=== PATIENT | female | born 1965 | race Caucasian/White ===

== ENCOUNTER → 2017-03-20 08:37 | Outpatient (CLI) | payer BC, SELFPAY ==
[2017-03-20 12:12] LABS: Absolute Lymphocyte Count 1.56 X10^3/ul (0.83-4.51); Absolute Neutrophil Count 4.1 X10^3/uL (2.0-7.7); Basophil# 0.09 X10^3/uL; Basophil% 1.4 % (0-1); Eosinophil# 0.12 X10^3/uL; Eosinophils% 1.9 % (0-5); Hematocrit 38.8 % (37-47); Hemoglobin 12.5 g/dl (12.0-15.0); Lymphocyte # 1.56 X10^3/ul (4.0); Lymphocyte % 24.4 % (19-41); Mean Corp Hgb Conc 32.2 g/gl (32-36); Mean Corpuscular Hgb 26.9 pg (27.0-32.0); Mean Corpuscular Volume 83.6 fL (81-99); Mean Platelet Vol. 9.5 fl (6.2-12.0); Monocyte% 7.8 % (0-10); Neutrophil # 4.12 X10^3/uL (2.7-7.7); Neutrophil % 64.5 % (47-70); Platelet Count 476 K/mm3 (150-450); RBC Distribution Width CV 13.9 % (11.6-14.6); RBC Distribution Width SD 40.8 fl (35.1-43.9); Red Blood Count 4.64 M/mm3 (4.2-5.4); White Blood Count 6.4 K/mm3 (4.4-11.0)
[2017-03-20 12:13] LABS: POSITIVE COUNT NO; POSITIVE DIFFERENTIAL NO; POSITIVE MORPHOLOGY NO
[2017-03-20 12:15] LABS: Erythrocyte Sedimentation Rate 30 mm/hr (0-30)
[2017-03-20 12:19] LABS: ALB/GLOB Ratio 0.9 RATIO (0.9-2.4); AST(SGOT) 16 U/L (15-37); Alanine Aminotransfer ALT/SGPT 29 U/L (13-56); Albumin, Serum 3.8 g/dL (3.2-5.0); Alkaline Phosphatase 79 U/L (45-117); Anion Gap 9 (5-15); BUN 12 mg/dL (7-18); BUN/Creat Ratio 16.2 RATIO (10-20); CRP < 2.90 mg/L (0.0-3.0); Calcium,Total 8.9 mg/dL (8.5-10.1); Chloride 105 mmol/L (98-107); Creatinine, Serum 0.74 mg/dL (0.55-1.02); EST Glomerular Filtration Rate 87 mL/min (>60); Est Glom Filt Rate - Afr Amer 105 mL/min (>60); Globulin 4.1 g/dL (2.2-4.2); Glucose 88 mg/dL (70-110); Magnesium 2.2 mg/dL (1.6-2.6); Protein, Total 7.9 g/dL (6.4-8.2); Sodium Level 138 mmol/L (136-145)
--- NOTE | 2017-03-20 17:24 | RAD_ITS ---
STUDY: X-RAY - CERVICAL SPINE REASON FOR EXAM: Female, 51 years old. Increased weakness in the upper extremities. TECHNIQUE: 5 view(s) of the cervical spine were obtained. COMPARISON: None FINDINGS: Normal anterior atlantoaxial articulation. Normal odontoid process. Normal cervical lordosis. Normal vertebral bodies and endplates. Normal disc space heights. Is minimal anterolisthesis of C4 on C5 of 2 mm. The alignment is otherwise preserved. Normal visualized intervertebral neuroforamina. There is no evidence of acute fracture or loss of vertebral axial height. The soft tissue structures are unremarkable. RAD/Cerv Spine 4 or 5 Views IMPRESSION: Minimal degenerative changes of the cervical spine Electronically Signed: José Miguel Bhatti DO at 18:39 EST Tel [phone], Service support ,
[2017-03-21 14:13] LABS: ANTINUCLEAR ANTIBODIES DIRECT Negative (Negative)
== END ==
PROVIDERS: Family Provider Family Medicine; PCP Family Medicine; Visit Provider Family Medicine
DX: M79.1 Myalgia (principal); R53.83 Other fatigue; M54.2 Cervicalgia; R29.898 Other symptoms and signs involving the musculoskeletal system; Z87.898 Personal history of other specified conditions
CPT/HCPCS: 36415; 72050; 80053; 83735; 85025; 85652; 86038; 86140

== ENCOUNTER → 2018-08-16 07:41 | Outpatient (CLI) | payer BC, SELFPAY ==
[2018-08-16 08:54] LABS: Cholesterol 287 mg/dL (200); High Density Lipoprotein 75 mg/dL; Triglycerides 90 mg/dL; Very Low Density Lipoprotein 18 mg/dL (5-40)
== END ==
PROVIDERS: Family Provider Family Medicine; PCP Family Medicine; Referring Provider Family Medicine; Visit Provider Family Medicine
DX: E78.5 Hyperlipidemia, unspecified (principal)
CPT/HCPCS: 36415; 80061

== ENCOUNTER → 2018-09-26 08:22 | Outpatient (CLI) | payer BC, SELFPAY ==
--- NOTE | 2018-09-25 17:02 | BI_ITS ---
MAMMOGRAPHY - BILATERAL SCREENING REASON FOR EXAM: Female, 53 years old. Routine annual screening examination. PERTINENT HISTORY: Mother with breast cancer. TECHNIQUE: Digital bilateral breast ledy (3D mammographic acquisition) in the CC and MLO projections. 2-D mediolateral oblique (MLO) and craniocaudad (CC) views of both breasts were obtained. CAD: Full Field Digital Mammography with Computer Added Detection was performed. COMPARISON: Comparison is made with prior study dated November 13, 2016 and November 17, 2015. FINDINGS: Breast Composition: There are scattered areas of fibroglandular density. There are no dominant masses or suspicious calcifications. No other significant abnormalities are identified. There has been no significant change since the prior study. BI/SCREEN MAMM (CAD) W/LEDY BILAT IMPRESSION: Stable bilateral screening mammogram. Yearly follow-up mammogram recommended. (A) ASSESSMENT CATEGORY: BIRADS Category 1: Negative. A letter regarding these results will be sent to the patient by the facility within 30 days. Approximately 10% of breast cancers are not detected by mammography. A normal mammogram should not delay biopsy of a clinically suspicious abnormality. [id number] Electronically Signed: Joseluis Chandler, at 9:23 EDT , Service support ,
== END ==
PROVIDERS: Family Provider Family Medicine; PCP Family Medicine; Referring Provider Family Medicine; Visit Provider Family Medicine
DX: Z12.31 Encounter for screening mammogram for malignant neoplasm of breast (principal); Z80.3 Family history of malignant neoplasm of breast
CPT/HCPCS: 77063; 77067

== ENCOUNTER → 2019-04-14 15:42 | Outpatient (CLI) | payer BC, SELFPAY ==
[2019-04-14 14:57] VITALS: BMI 28.3
[2019-04-14 16:04] LABS: Hematocrit 44.1 % (37-47); Hemoglobin 14.6 g/dL (12.0-15.0); Mean Corp Hgb Conc 33.1 g/dL (32-36); Mean Corpuscular Hgb 29.3 pg (27.0-32.0); Mean Corpuscular Volume 88.6 fL (81-99); Mean Platelet Vol. 9.2 fl (6.2-12.0); Platelet Count 472 K/mm3 (150-450); RBC Distribution Width CV 13.3 % (11.6-14.6); RBC Distribution Width SD 43.3 fl (35.1-43.9); Red Blood Count 4.98 M/mm3 (4.2-5.4); White Blood Count 7.4 K/mm3 (4.4-11.0)
== END ==
PROVIDERS: PCP Family Medicine; Referring Provider Surgery; Visit Provider Surgery
DX: R19.5 Other fecal abnormalities (principal)
CPT/HCPCS: 36415; 85027

== ENCOUNTER 2019-04-20 06:13 | Day surgery (SDC) | payer BC, SELFPAY ==
--- NOTE | 2019-04-14 04:12 | HP_ITS ---
Intake Vital Signs 04/14/19 BP 135/89 H 04/14/19 Height 5 ft 5 in 04/14/19 Weight: 170 lb 4 oz 04/14/19 BMI 28.3 04/14/19 BP 153/96 H 04/14/19 Blood Pressure Location Rt brachial 04/14/19 Position Sitting 04/14/19 Respiration 18 04/14/19 Pulse 86 04/14/19 Pulse Oximetry (%) 97 Intake Visit Reasons: + cologuard Chief Complaint: + cologuard [employer] Required: No Is patient in pain?: No Allergies No Known Allergies Allergy (Verified 04/14/19 14:57) Medications NK 04/14/19 [History Confirmed 04/14/19] Is last menstrual period known: No Post menopausal: Yes Patient : No PFSH Medical History (Updated 04/14/19 @ 16:[address] Gavin Mendez MD) Positive colorectal cancer screening using Cologuard test (Acute) Hyperlipidemia (Acute) Positive colorectal cancer screening using Cologuard test (Acute) Surgical History (Updated 04/14/19 @ 14:55 by Trista Marley) History of colonoscopy (Acute ~2006) History of partial hysterectomy (Acute ~2007) Family History (Updated 04/14/19 @ 14:56 by Trista Marley) Father Cancer thyroid, lung, brain Grandmother Heart disease Grandfather Heart disease Social History (Updated 04/14/19 @ 16:[address] Gavin Mendez MD) Smoking Status: Never smoker alcohol intake: current HPI HPI HPI: ROSALINE GROSS, is a 53 F who presents to the office today for HPI HPI Surgical H&P: Yes HPI: ROSALINE GROSS, is a 53 F who presents to the office today for surgical consultation regarding a positive Hemoccult exam. The patient's primary care physician is Dr. Briseyda Duval and a copy of my surgical consult and recommendations will return to her. Pleasant 53-year-old female. Previous colonoscopy was in 2006 was unremarkable. No food intolerance. 1 or 2 slight episodes of bright red blood per rectum. No family history of colon cancer. No abdominal pain. No change of bowel habits. No weight loss. She took a Cologuard test and results were positive. Etiology is not determined whether this was DNA or Hemoccult. She otherwise enjoys good health. She does not take any an acid or acid reducing medications. ROS General General: No weight change, appetite, fatigue, colon cancer, breast cancer or weakness HEENT HEENT: No difficulty swallowing, eye injury, eye surgery, swollen glands or hoarseness Endo Endocrine: No thyroid disease, diabetes mellitus, thyroid cancer, Hair loss, heat intolerance or cold intolerance Cardio Cardiovascular: No murmur, pacemaker, heart disease, atrial fibrillation, high blood pressure, heart attack, heart stent, palpitations, shortness of breat with exertion or chest pain Psych Psychiatric: No depression, anxiety or hearing voices Resp Respiratory: No shortness of breath, No sleep apnea, No cough, No COPD, No asthma, No emphysema, No wheezing Gastro Gastrointestinal: No abdominal pain, No nausea or vomiting, No diarrhea, Yes constipation, Yes blood in stool, No acid reflux, No hemorrhoids, No ulcers, No gallbladder problem, Yes black,tarry stools Thomas Hematologic: No blood thinners, No blood disorders, No bleeding, No anemia, No blood clots Neuro Neurologic: No weakness Exam Const General: cooperative, healthy appearing, comfortable, no acute distress Nutritional Appearance: overweight Orientation: alert, awake HENAK Head: normal to inspection Resp Effort & Inspection: normal respiratory effort Auscultation: clear to auscultation bilaterally Cardio Rate: regular rate Rhythm: regular rhythm Heart Sounds: no murmurs GI Palpation: soft, no hepatosplenomegaly Auscultation: normal bowel sounds Neuro General: alert, awake Extrem General: no calf tenderness bilaterally Psych Affect: normal affect Assessment & Plan Problems 1. Positive colorectal cancer screening using Cologuard test R19.5 Plan 53-year-old female. Most recent colonoscopy was 2006. Recent Cologuard was positive. Potential site of positivity not clear. I have recommended the patient a esophagogastroduodenoscopy with possible biopsy and colonoscopy with possible biopsy or polypectomy as indicated. I discussed the technique, benefit, risk, alternatives. Because the Cologuard test is a dual test I cannot exclude potential upper GI as a source of potential blood loss. We will check a CBC as well. She has had an opportunity to ask and have questions answered we will schedule and expedite her care. I anticipate MAC. Griffin assisted with referral CC: Dr. Briseyda Mendez M.D., F.A.C.S. Orders Orders: Colonoscopy Today R19.5 CBC-Complete Blood Cnt No Diff Today R19.5 Coding Level of Care Code Off vis,new,level 3 Diagnoses Positive colorectal cancer screening using Cologuard test R19.5 04/14/19 1612 <Electronically signed by Gavin jerry MD> Date _ Gavin Mendez MD I have re-examined the patient. There are no clinical changes since date of exam.
[2019-04-14 14:57] VITALS: BMI 28.3
[2019-04-20 06:46] VITALS: BP 133/89; PULSE 88; RESP 16; TEMP 36.6; O2SAT 100; BMI 28.1
[2019-04-20] MEDS: Lactated Ringers 1,000 ML 100 ML IV (07:05)
--- NOTE | 2019-04-20 07:15 | EGD_PTH ---
PATIENT: ROSALINE GROSS LOC: EN U#:[id number] AGE/SX: 53/F ROOM: RE04/20/[address]: Dr. Gavin Mendez MD : 1965 BED: DIS: 04/20/2019 SPEC #: [id number] RECD: 04/20/19 08:54 STATUS: WERNER SPEEDY #: [id number] MARIA FERNANDA: 04/20/19 07:[address]: Gavin Mendez DEPT: SURGICAL PATHOLOGY RECD BY: Ramiro Barrow ENTERED: 04/20/19 12:06 SP TYPE: EGD BIOPSY OT DR: Dr. Briseyda Duval, DO Tissues: A - Gastric mucous membrane B - Esophageal mucous membrane Procedures: Surgery Specimen Level IV HEADER OPERATION: [place] [place] DIAGNOSIS: Positive Cologuard TISSUE SUBMITTED: A - Antrum biopsy for H. pylori and path, B - Distal esophagus biopsy MICROSCOPIC DIAGNOSIS A. Antrum, biopsy: Mild to moderate gastritis. A minute lymphoid aggregate, favor benign. See microscopic description and comment. B. Distal esophagus, biopsy: A fragment of squamous epithelium with congestion and changes consistent with gastroesophageal reflux disease. SJ:elvira 04/21/19 COMMENT A. The results of immunohistochemistry for Helicobacter pylori will be reported separately ([id number]). MICROSCOPIC DESCRIPTION Slides are reviewed. A. The specimen shows fragments of gastric mucosa with chronic inflammatory cell infiltrates in the lamina propria consisting of lymphocytes and plasma cells, consistent with mild to moderate chronic gastritis. A minute lymphoid aggregate is also noted, favor benign. GROSS DESCRIPTION A - Received in fixative is one container labeled with the patient's name and designated antrum biopsy. The specimen consists of one irregular fragment of light caballero soft tissue that measures 0.3 x 0.2 x 0.1 cm. The specimen is totally submitted in one cassette. B - Received in fixative is one container labeled with the patient's name and designated distal esophagus biopsy. The specimen consists of one irregular fragment of light caballero soft tissue that measures 0.3 x 0.2 x 0.1 cm. The specimen is totally submitted in one cassette. / MARCI:elvira 04/20/19 TC:3 CPT: 34206 x2
--- NOTE | 2019-04-20 07:15 | IMM_PTH ---
PATIENT: ROSALINE GROSS LOC: EN U#:[id number] AGE/SX: 53/F ROOM: RE04/20/[address]: Dr. Gavin Mendez MD : 1965 BED: DIS: 04/20/2019 SPEC #: [id number] RECD: 04/20/19 14:21 STATUS: WERNER RESonia #: [id number] MARIA FERNANDA: 04/20/19 07:[address]: Gavin Mendez DEPT: IMMUNOHISTOCHEMISTRY RECD BY: Liz Gonzalez ENTERED: 04/20/19 14:22 SP TYPE: IMMUNO OTHR DR: Dr. Briseyda Duval DO Tissues: A - Stomach, NOS Procedures: H Pylori (initial) PHYSICIAN & INSTITUTION [place] [address] SPECIMEN INFORMATION: Tissue Source: A - Antrum biopsy Clinical Info: Positive Cologuard Specimen Number: [id number] CPT code: 73059 METHODOLOGY: Deparaffinized sections of prefer/formalin-fixed tissue or PAP/DQ stained slides are incubated with monoclonal/polyclonal antibodies/oligonucleotide probes. Localization is made via biotin free immunoperoxidase method. Appropriate controls are performed and reacted as expected. Results on target cell population are indicated in the following table: RESULTS: ANTIBODY / CLONE RESULT Block A H Pylori (polyclonal) negative These tests were developed and their performance characteristics determined by [facility]. They may not have been cleared or approved by the U.S. Food and Drug Administration. The FDA has determined that such clearance or approval is not necessary. INTERPRETATION: A. Antrum, biopsy: Negative for Helicobacter pylori organisms. SJ:elvira 04/21/19
[2019-04-20 07:57] VITALS: BP 133/89; BP 84/47; PULSE 60; RESP 16; TEMP 36.4; O2SAT 94
--- NOTE | 2019-04-20 07:59 | OP.EGD_ITS ---
Patient Name: Lori Bazan Procedure Date: 04/20/2019 7:18 AM Date of : 1965 Age: 53 Procedure: Upper GI endoscopy Indications: Cologuard positive Providers: Gavin Mendez MD Referring MD: Briseyda Duval Complications: No immediate complications. Procedure: Pre-Anesthesia Assessment: - Prior to the procedure, a History and Physical was performed, and patient medications and allergies were reviewed. The patient's tolerance of previous anesthesia was also reviewed. The risks and benefits of the procedure and the sedation options and risks were discussed with the patient. All questions were answered, and informed consent was obtained. Prior Anticoagulants: The patient has taken no previous anticoagulant or antiplatelet agents. ASA Grade Assessment: II - A patient with mild systemic disease. After reviewing the risks and benefits, the patient was deemed in satisfactory condition to undergo the procedure. After obtaining informed consent, the endoscope was passed under direct vision. Throughout the procedure, the patient's blood pressure, pulse, and oxygen saturations were monitored continuously. The gastroscope was introduced through the mouth, and advanced to the second part of duodenum. The upper GI endoscopy was accomplished without difficulty. The patient tolerated the procedure well. Scope In: Scope Out: 7:33:49 AM Findings: Esophagitis with no bleeding was found 38 cm from the incisors. Biopsies were taken with a cold forceps for histology. Diffuse mildly erythematous mucosa without bleeding was found in the gastric antrum. Biopsies were taken with a cold forceps for histology. The examined duodenum was normal. Impression: - Reflux esophagitis. Biopsied. - Erythematous mucosa in the antrum. Biopsied. - Normal examined duodenum. Recommendation: - Discharge patient to home. - Resume previous diet. - Continue present medications. - Use Pepcid (famotidine) 20 mg PO daily. - Telephone my office for pathology results in 1 week. Suspect mild gastritis enough to trigger Cologuard test Procedure Code(s): --- Professional --- 75270, Esophagogastroduodenoscopy, flexible, transoral; with biopsy, single or multiple Diagnosis Code(s): --- Professional --- K21.0, Gastro-esophageal reflux disease with esophagitis K31.89, Other diseases of stomach and duodenum CPT copyright 2017 [employer]. All rights reserved. The codes documented in this report are preliminary and upon inspector machine cut glass review may be revised to meet current compliance requirements. Gavin Mendez MD 04/20/2019 7:58:32 AM This report has been signed electronically. Number of Addenda: 0 Note Initiated On: 04/20/2019 7:18 AM
--- NOTE | 2019-04-20 07:59 | OP.CCLET_ITS ---
04/20/2019 Briseyda Duval [address] [place] [address] Re : Upper GI endoscopy procedure for Lori Bazan Dear Dr. Duval This procedure was performed on Saturday, April 20, 2019. My impressions and recommendations are as follows: Impressions : - Reflux esophagitis. Biopsied. - Erythematous mucosa in the antrum. Biopsied. - Normal examined duodenum. Recommendations : - Discharge patient to home. - Resume previous diet. - Continue present medications. - Use Pepcid (famotidine) 20 mg PO daily. - Telephone my office for pathology results in 1 week. Suspect mild gastritis enough to trigger Cologuard test My findings are described in the full procedure note, which is enclosed. If I can be of further assistance, please feel free to contact me at Doctor phone number(s): Work: . Sincerely, Gavin Mendez MD 04/20/2019 7:58:32 AM This report has been signed electronically.
--- NOTE | 2019-04-20 08:01 | OP.COLON_ITS ---
Patient Name: Lori Bazan Procedure Date: 04/20/2019 7:35 AM Date of : 1965 Age: 53 Procedure: Colonoscopy Indications: Cologuard positive Providers: Gavin Mendez MD Referring MD: Briseyda Duval Patient Profile: Last Colonoscopy: 2006. Complications: No immediate complications. Procedure: Pre-Anesthesia Assessment: - Prior to the procedure, a History and Physical was performed, and patient medications and allergies were reviewed. The patient's tolerance of previous anesthesia was also reviewed. The risks and benefits of the procedure and the sedation options and risks were discussed with the patient. All questions were answered, and informed consent was obtained. Prior Anticoagulants: The patient has taken no previous anticoagulant or antiplatelet agents. ASA Grade Assessment: II - A patient with mild systemic disease. After reviewing the risks and benefits, the patient was deemed in satisfactory condition to undergo the procedure. After I obtained informed consent, the scope was passed under direct vision. Throughout the procedure, the patient's blood pressure, pulse, and oxygen saturations were monitored continuously. The colonoscope was introduced through the anus and advanced to the cecum, identified by appendiceal orifice and ileocecal valve. The colonoscopy was performed with moderate difficulty due to a tortuous colon. Successful completion of the procedure was aided by changing the patient to a supine position and applying abdominal pressure. The patient tolerated the procedure well. The quality of the bowel preparation was good. Scope In: 7:35:56 AM Scope Withdrawal Time 0 hours 6 minutes 26 seconds Scope Out: 7:53:45 AM Total Procedure Duration Time 0 hours 17 minutes 49 seconds Findings: The digital rectal exam findings include non-thrombosed external hemorrhoids, non-thrombosed internal hemorrhoids and internal hemorrhoids that prolapse with straining, but spontaneously regress to the resting position (Grade II). Lax anal tone noted The colon (entire examined portion) was moderately tortuous. The exam was otherwise without abnormality. Impression: - Non-thrombosed external hemorrhoids, non-thrombosed internal hemorrhoids and internal hemorrhoids that prolapse with straining, but spontaneously regress to the resting position (Grade II) found on digital rectal exam. - Tortuous colon. - The examination was otherwise normal. - No specimens collected. Recommendation: - Discharge patient to home. - Resume previous diet. - Continue present medications. - Repeat colonoscopy in 10 years for screening purposes. Procedure Code(s): --- Professional --- 80544, Colonoscopy, flexible; diagnostic, including collection of specimen(s) by brushing or washing, when performed (separate procedure) Diagnosis Code(s): --- Professional --- K64.1, Second degree hemorrhoids K64.4, Residual hemorrhoidal skin tags Q43.8, Other specified congenital malformations of intestine CPT copyright 2017 [employer]. All rights reserved. The codes documented in this report are preliminary and upon treatment counselor review may be revised to meet current compliance requirements. Gavin Mendez MD 04/20/2019 8:01:14 AM This report has been signed electronically. Number of Addenda: 0 Note Initiated On: 04/20/2019 7:35 AM
--- NOTE | 2019-04-20 08:01 | OP.CCLET_ITS ---
04/20/2019 Briseyda Duval [address] [place] [address] Re : Colonoscopy procedure for Lori Bazan Dear Dr. Duval This procedure was performed on Saturday, April 20, 2019. My impressions and recommendations are as follows: Impressions : - Non-thrombosed external hemorrhoids, non-thrombosed internal hemorrhoids and internal hemorrhoids that prolapse with straining, but spontaneously regress to the resting position (Grade II) found on digital rectal exam. - Tortuous colon. - The examination was otherwise normal. - No specimens collected. Recommendations : - Discharge patient to home. - Resume previous diet. - Continue present medications. - Repeat colonoscopy in 10 years for screening purposes. My findings are described in the full procedure note, which is enclosed. If I can be of further assistance, please feel free to contact me at Doctor phone number(s): Work: . Sincerely, Gavin Mendez MD 04/20/2019 8:01:14 AM This report has been signed electronically.
[2019-04-20 08:02] VITALS: BP 133/89; BP 96/62; PULSE 75; RESP 16; O2SAT 98
[2019-04-20 08:07] VITALS: BP 133/89; BP 94/64; PULSE 74; RESP 16; O2SAT 96
[2019-04-20 08:12] VITALS: BP 100/65; BP 133/89; PULSE 78; RESP 16; TEMP 36.1; O2SAT 97
[2019-04-20 08:41] VITALS: BP 133/89
== END 2019-04-20 08:43 | disposition home or self-care (01) ==
LOC: EN 06:14 → AC 06:21
PROVIDERS: PCP Family Medicine; Referring Provider Family Medicine; Visit Provider Surgery
PROC: 0DJD8ZZ Inspection of Lower Intestinal Tract, Via Natural or Artificial Opening Endoscopic (ICD-10-PCS; CPT 45378; principal; 2019-04-20 07:10)
DX: K21.0 Gastro-esophageal reflux disease with esophagitis (principal); K29.70 Gastritis, unspecified, without bleeding; K64.1 Second degree hemorrhoids; K64.4 Residual hemorrhoidal skin tags; Q43.8 Other specified congenital malformations of intestine; R19.5 Other fecal abnormalities
CPT/HCPCS: 43239; 45378; 88305; 88342; J7120; J2405

== ENCOUNTER → 2019-11-05 | Outpatient (CLI) | payer BC, SELFPAY | END | disposition home or self-care (01) | LOC: LABSPEC 14:54 | PROVIDERS: Visit Provider Family Medicine | DX: Z03.818 Encounter for observation for suspected exposure to other biological agents ruled out (principal) | CPT/HCPCS: 87635; U0003 ==

== ENCOUNTER → 2019-11-19 | Outpatient (CLI) | payer BC, SELFPAY | END | disposition home or self-care (01) | LOC: LABSPEC 11:36 | PROVIDERS: Referring Provider Family Medicine; Visit Provider Family Medicine | DX: Z11.59 Encounter for screening for other viral diseases (principal) | CPT/HCPCS: 87635; U0003 ==

== ENCOUNTER → 2019-12-03 | Outpatient (CLI) | payer BC, SELFPAY | END | disposition home or self-care (01) | LOC: LABSPEC 12:42 | PROVIDERS: Referring Provider Family Medicine; Visit Provider Family Medicine | DX: Z03.818 Encounter for observation for suspected exposure to other biological agents ruled out (principal) | CPT/HCPCS: 87635; U0003 ==

== ENCOUNTER → 2019-12-17 | Outpatient (CLI) | payer BC, SELFPAY | END | disposition home or self-care (01) | LOC: LABSPEC 10:36 | PROVIDERS: Referring Provider Family Medicine; Visit Provider Family Medicine | DX: Z03.818 Encounter for observation for suspected exposure to other biological agents ruled out (principal) | CPT/HCPCS: 87635; U0003 ==

== ENCOUNTER → 2019-12-31 | Outpatient (CLI) | payer BC, SELFPAY | END | disposition home or self-care (01) | LOC: LABSPEC 12:16 | PROVIDERS: Referring Provider Family Medicine; Visit Provider Family Medicine | DX: Z03.818 Encounter for observation for suspected exposure to other biological agents ruled out (principal) | CPT/HCPCS: 87635; U0003 ==

== ENCOUNTER → 2020-04-05 07:06 | Outpatient (CLI) | payer BC, SELFPAY ==
--- NOTE | 2020-04-05 07:08 | BI_ITS ---
MAMMOGRAPHY - BILATERAL SCREENING REASON FOR EXAM: Female, 54 years old. Routine annual screening examination. PERTINENT HISTORY: Mother with breast cancer. TECHNIQUE: Digital bilateral breast ledy (3D mammographic acquisition) in the CC and MLO projections. 2-D mediolateral oblique (MLO) and craniocaudad (CC) views of both breasts were obtained. CAD: Full Field Digital Mammography with Computer Added Detection was performed. COMPARISON: Comparison is made with prior study dated 09/25/2018 and 11/13/2016. FINDINGS: Breast Composition: There are scattered areas of fibroglandular density. There are no dominant masses or suspicious calcifications. No other significant abnormalities are identified. There has been no significant change since the prior study. BI/SCRN MAMM (CAD)W/LEDY BILAT IMPRESSION: Stable bilateral screening mammogram. Yearly follow-up mammogram recommended. (A) ASSESSMENT CATEGORY: BIRADS Category 1: Negative. A letter regarding these results will be sent to the patient by the facility within 30 days. Approximately 10% of breast cancers are not detected by mammography. A normal mammogram should not delay biopsy of a clinically suspicious abnormality. [id number] Electronically Signed: Joseluis Chandler MD at 8:07 EST , Service support ,
== END ==
PROVIDERS: PCP Family Medicine; Referring Provider Family Medicine; Visit Provider Family Medicine
DX: Z12.31 Encounter for screening mammogram for malignant neoplasm of breast (principal); Z80.3 Family history of malignant neoplasm of breast
CPT/HCPCS: 77063; 77067

== ENCOUNTER → 2020-12-12 06:38 | Outpatient (CLI) | payer BC, SELFPAY ==
[2020-12-12 07:55] LABS: AST(SGOT) 20 U/L (15-37); Alanine Aminotransfer ALT/SGPT 29 U/L (13-56); Albumin, Serum 3.7 g/dL (3.2-5.0); Alkaline Phosphatase 82 U/L (45-117); Anion Gap 6 (5-15); BUN 14 mg/dL (7-18); BUN/Creat Ratio 19.1 RATIO (10-20); Calcium,Total 8.9 mg/dL (8.5-10.1); Chloride 107 mmol/L (98-107); Creatinine, Serum 0.73 mg/dL (0.55-1.02); EST Glomerular Filtration Rate 87 mL/min (>60); Est Glom Filt Rate - Afr Amer 105 mL/min (>60); Globulin 3.7 g/dL (2.2-4.2); Glucose 100 mg/dL (74-106); Potassium 3.9 mmol/L (3.5-5.1); Protein, Total 7.4 g/dL (6.4-8.2); Sodium Level 139 mmol/L (136-145); T4 Free Direct 0.81 ng/dL (0.76-1.46); Thyroid Stim Hormone (TSH) 2.72 uIU/mL (0.358-3.74)
[2020-12-14 11:08] LABS: CHOLESTEROL TOTAL 294 mg/dL (100-199); HDL-C 64 mg/dL (>39); HDL-P TOTAL 35.5 umol/L (>=30.5); SMALL LDL-P 502 nmol/L (<=527); TRIGLYCERIDES 165 mg/dL (0-149)
[2020-12-14 11:19] LABS: INSULIN RESISTANCE SCORE <25 (<=45); LDL SIZE 21.8 nm (>20.5); LDL-C (NIH CALC) 199 mg/dL (0-99); LDL-P 2141 nmol/L (<1000)
== END ==
PROVIDERS: PCP Family Medicine; Referring Provider Family Medicine; Visit Provider Family Medicine
DX: Z00.00 Encounter for general adult medical examination without abnormal findings (principal); E03.9 Hypothyroidism, unspecified; E78.5 Hyperlipidemia, unspecified
CPT/HCPCS: 36415; 80053; 80061; 83704; 84439; 84443

== ENCOUNTER 2021-03-01 12:34 | Outpatient (CLI) | payer OTHER, SELFPAY ==
--- NOTE | 2021-03-01 12:42 | CT_ITS ---
STUDY: CARDIAC CALCIUM SCORING - CT CHEST REASON FOR EXAM: Female, 55 years old. SCREENING FOR CARDIOVASCULAR DISEASE *OVER READ ONLY* RADIATION DOSAGE (If Supplied By Facility): CTDIvol = ( 12.19 ) mGy, DLP = ( 195.04 ) mGycm TECHNIQUE: Axial non-enhanced images were acquired through the heart for the sole purpose of measuring coronary artery calcium. Individualized dose optimization techniques were used for this CT. COMPARISON: None. FINDINGS: No visualized nodule or mass in the imaged segments of the lungs. No demonstrated pleural effusion or pneumothorax. No intrathoracic adenopathy identified. No pericardial effusion. Visualized thoracic aorta is unremarkable. No osseous abnormality. CT/Limited Chest CT w/CCTA IMPRESSION: No incidental findings requiring additional workup/follow-up. Electronically Signed: Maximino Sethi MD ([place]) at 16:39 EST , Service support ,
[2021-03-01 12:49] VITALS: BP 160/94; PULSE 66; RESP 16; O2SAT 98; BMI 29.9
--- NOTE | 2021-03-01 16:47 | CA.SCORE ---
Calcium Scoring Date of Study:: 03/01/21 Coronary Calcium Scoring: High-resolution Computed Tomographic imaging of the chest was performed on 03/01/2021 with particular attention paid to the coronary arteries. Images from the examination were analyzed for the presence and extent of coronary artery calcification , using coronary calcium quantification software. The patient tolerated the procedure well and there were no complications. The results of the coronary calcification analysis are provided below. Findings Coronary Artery Left Main (LM): 0 Left Anterior Descending (LAD): 0 Left Circumflex (LCX): 0 Right Coronary Artery (RCA): 0 Total Agatston Score: 0 Percentile Ranking: Percentile rankin%: According to prepublished data 25% of people of the same gender and/or similar age had the same and/or lower scores Calcium Scoring Interpretation: 0 No identifiable atherosclerotic plaque. Very low cardiovascular disease risk. <5% chance of presence coronary artery disease A Negative Examination 1-10 Minimal Plaque burden. Significant coronary artery disease very unlikely. 11-100 Mild plaque burden. Likely mild or minimal coronary atherosclerosis. 101-400 Moderate plaque burden Moderate non-obstructive coronary artery disease highly likely. Over 400 Extensive plaque burden. High likelihood of at least one significant coronary stenosis (>50% diameter) Calcium Score: 0 Negative Examination Conclusion: Continue vascular risk factor evalution and care as deemed appropriate. This note was generated using a voice recognition system and there may be incorrect words, spelling or punctuation that were not noted when reviewing the office note prior to saving.
== END 2021-03-01 23:59 | disposition short-term general hospital (02) ==
LOC: CT 12:38
PROVIDERS: PCP Family Medicine; Referring Provider Family Medicine; Visit Provider Family Medicine
DX: Z13.6 Encounter for screening for cardiovascular disorders (principal); E78.5 Hyperlipidemia, unspecified
CPT/HCPCS: 75571; 76380

== ENCOUNTER 2021-04-14 06:55 | Outpatient (CLI) | payer OTHER, SELFPAY ==
--- NOTE | 2021-04-14 07:07 | BI_ITS ---
MAMMOGRAPHY - BILATERAL SCREENING REASON FOR EXAM: Female, 55 years old. Routine annual screening examination. PERTINENT HISTORY: Mother with breast cancer. TECHNIQUE: Digital bilateral breast ledy (3D mammographic acquisition) in the CC and MLO projections. 2-D mediolateral oblique (MLO) and craniocaudad (CC) views of both breasts were obtained. CAD: Full Field Digital Mammography with Computer Added Detection was performed. COMPARISON: Comparison is made with prior examination dated 04/05/2020 and 09/25/2018. FINDINGS: Breast Composition: There are scattered areas of fibroglandular density. There are no dominant masses or suspicious calcifications. Stable benign-appearing bilateral axillary lymph nodes. No other significant abnormalities are identified. There has been no significant change since the prior study. BI/SCRN MAMM (CAD)W/LEDY BILAT IMPRESSION: Stable bilateral screening mammogram. Yearly follow-up mammogram recommended. (A) ASSESSMENT CATEGORY: BIRADS Category 2: Benign. A letter regarding these results will be sent to the patient by the facility within 30 days. Approximately 10% of breast cancers are not detected by mammography. A normal mammogram should not delay biopsy of a clinically suspicious abnormality. [id number] Electronically Signed: Joseluis Chandler MD at 8:10 EST ,
== END 2021-04-14 23:59 | disposition home or self-care (01) ==
LOC: OPBI 07:06
PROVIDERS: PCP Family Medicine; Referring Provider Family Medicine; Visit Provider Family Medicine
DX: Z12.31 Encounter for screening mammogram for malignant neoplasm of breast (principal); Z80.3 Family history of malignant neoplasm of breast
CPT/HCPCS: 77063; 77067

== ENCOUNTER → 2022-06-12 | Outpatient (CLI) | payer OTHER, SELFPAY ==
--- NOTE | 2022-06-12 07:07 | BI_ITS ---
MAMMOGRAPHY - BILATERAL SCREENING REASON FOR EXAM: Female, 57 years old. Routine annual screening examination. PERTINENT HISTORY: Mother with breast cancer. TECHNIQUE: Digital bilateral breast ledy (3D mammographic acquisition) in the CC and MLO projections. 2-D mediolateral oblique (MLO) and craniocaudad (CC) views of both breasts were obtained. CAD: Full Field Digital Mammography with Computer Added Detection was performed. COMPARISON: Comparison is made with prior study dated April 14, 2021 and April 05, 2020. FINDINGS: Breast Composition: There are scattered areas of fibroglandular density. There are no dominant masses or suspicious calcifications. Stable small benign-appearing bilateral axillary lymph nodes. No other significant abnormalities are identified. There has been no significant change since the prior study. BI/SCRN MAMM (CAD)W/LEDY BILAT IMPRESSION: Stable bilateral screening mammogram. Yearly follow-up mammogram recommended. (A) ASSESSMENT CATEGORY: BIRADS Category 2: Benign. A letter regarding these results will be sent to the patient by the facility within 30 days. Approximately 10% of breast cancers are not detected by mammography. A normal mammogram should not delay biopsy of a clinically suspicious abnormality. [id number] Electronically Signed: Joseluis Cahndler MD at 8:20 EDT ,
== END | disposition home or self-care (01) ==
LOC: OPBI 07:05
PROVIDERS: PCP Family Medicine; Referring Provider Family Medicine; Visit Provider Family Medicine
DX: Z12.31 Encounter for screening mammogram for malignant neoplasm of breast (principal)
CPT/HCPCS: 77063; 77067

== ENCOUNTER → 2022-06-28 | Outpatient (CLI) | payer OTHER, SELFPAY ==
[2022-06-28 18:13] LABS: Absolute Lymphocyte Count 2.02 X10^3/uL (0.83-4.51); Absolute Neutrophil Count 5.7 X10^3/uL (2.0-7.7); Basophil# 0.11 X10^3/uL; Basophil% 1.3 % (0-1); Eosinophil# 0.12 X10^3/uL; Eosinophils% 1.4 % (0-5); Hematocrit 41.3 % (37-47); Hemoglobin 13.5 g/dL (12.0-15.0); Lymphocyte # 2.02 X10^3/ul (0.83-4.51); Lymphocyte % 24.1 % (19-41); Mean Corp Hgb Conc 32.7 g/dL (32-36); Mean Corpuscular Hgb 29.2 pg (27.0-32.0); Mean Corpuscular Volume 89.4 fL (81-99); Mean Platelet Vol. 9.2 fl (6.2-12.0); Monocyte# 0.45 X10^3/uL; Monocyte% 5.4 % (0-10); NRBC Flagged by Analyzer 0 % (0-5); Neutrophil # 5.67 X10^3/uL (2.7-7.7); Neutrophil % 67.6 % (47-70); Platelet Count 621 K/mm3 (150-450); RBC Distribution Width CV 13.6 % (11.6-14.6); RBC Distribution Width SD 44.2 fl (35.1-43.9); Red Blood Count 4.62 M/mm3 (4.2-5.4); White Blood Count 8.4 K/mm3 (4.4-11.0)
[2022-06-28 18:59] LABS: ALB/GLOB Ratio 0.8 RATIO (0.9-2.4); AST(SGOT) 21 U/L (15-37); Alanine Aminotransfer ALT/SGPT 34 U/L (13-56); Albumin, Serum 3.8 g/dL (3.2-5.0); Alkaline Phosphatase 92 U/L (45-117); Anion Gap 7 (5-15); BUN 17 mg/dL (7-18); BUN/Creat Ratio 19.4 RATIO (10-20); Calcium,Total 9.8 mg/dL (8.5-10.1); Chloride 104 mmol/L (98-107); Creatinine, Serum 0.88 mg/dL (0.55-1.02); EST Glomerular Filtration Rate 70 mL/min (>60); Est Glom Filt Rate - Afr Amer 85 mL/min (>60); Globulin 4.5 g/dL (2.2-4.2); Glucose 102 mg/dL (74-106); Protein, Total 8.3 g/dL (6.4-8.2); Sodium Level 138 mmol/L (136-145); T4 Free Direct 0.98 ng/dL (0.76-1.46); Thyroid Stim Hormone (TSH) 1.33 uIU/mL (0.358-3.74)
== END | disposition home or self-care (01) ==
LOC: BFHLAB 15:32
PROVIDERS: PCP Family Medicine; Referring Provider Family Medicine; Visit Provider Family Medicine
DX: Z00.00 Encounter for general adult medical examination without abnormal findings (principal); R53.83 Other fatigue
CPT/HCPCS: 36415; 80053; 84439; 84443; 85025

== ENCOUNTER → 2022-07-11 | Outpatient (CLI) | payer OTHER, SELFPAY ==
[2022-07-11 17:52] LABS: Absolute Lymphocyte Count 2.02 X10^3/uL (0.83-4.51); Absolute Neutrophil Count 3.9 X10^3/uL (2.0-7.7); Basophil% 1.5 % (0-1); Eosinophil# 0.08 X10^3/uL; Eosinophils% 1.2 % (0-5); Hematocrit 39.3 % (37-47); Hemoglobin 13.1 g/dL (12.0-15.0); Lymphocyte # 2.02 X10^3/ul (0.83-4.51); Lymphocyte % 31.1 % (19-41); Mean Corp Hgb Conc 33.3 g/dL (32-36); Mean Corpuscular Hgb 29.9 pg (27.0-32.0); Mean Corpuscular Volume 89.7 fL (81-99); Mean Platelet Vol. 9.3 fl (6.2-12.0); Monocyte# 0.42 X10^3/uL; Monocyte% 6.5 % (0-10); NRBC Flagged by Analyzer 0 % (0-5); Neutrophil # 3.86 X10^3/uL (2.7-7.7); Neutrophil % 59.5 % (47-70); Platelet Count 480 K/mm3 (150-450); RBC Distribution Width CV 14.3 % (11.6-14.6); RBC Distribution Width SD 46.7 fl (35.1-43.9); Red Blood Count 4.38 M/mm3 (4.2-5.4); White Blood Count 6.5 K/mm3 (4.4-11.0)
[2022-07-11 18:12] LABS: ALB/GLOB Ratio 0.9 RATIO (0.9-2.4); AST(SGOT) 16 U/L (15-37); Alanine Aminotransfer ALT/SGPT 28 U/L (13-56); Albumin, Serum 3.7 g/dL (3.2-5.0); Alkaline Phosphatase 87 U/L (45-117); Anion Gap 6 (5-15); BUN 17 mg/dL (7-18); BUN/Creat Ratio 18.7 RATIO (10-20); CRP < 2.90 mg/L (0.0-3.0); Calcium,Total 8.9 mg/dL (8.5-10.1); Chloride 107 mmol/L (98-107); Creatinine, Serum 0.91 mg/dL (0.55-1.02); EST Glomerular Filtration Rate 68 mL/min (>60); Est Glom Filt Rate - Afr Amer 82 mL/min (>60); Globulin 3.9 g/dL (2.2-4.2); Glucose 92 mg/dL (74-106); Potassium 3.9 mmol/L (3.5-5.1); Protein, Total 7.6 g/dL (6.4-8.2); Sodium Level 139 mmol/L (136-145)
[2022-07-11 18:51] LABS: Erythrocyte Sedimentation Rate 17 mm/hr (0-30)
[2022-07-14 07:08] LABS: Beta-2-Microglobulin, S 1.3 mg/L (0.6-2.4)
[2022-07-17 12:07] LABS: Immunoglobulin A 80 mg/dL (87-352); Immunoglobulin G 1179 mg/dL (586-1602); Immunoglobulin M 59 mg/dL (26-217); PROEL- A/G Ratio 1.3 (0.7-1.7); PROEL- Albumin 3.8 g/dL (2.9-4.4); PROEL- Alpha-1 Globulin 0.1 g/dL (0.0-0.4); PROEL- Alpha-2 Globulin 0.7 g/dL (0.4-1.0); PROEL- Gamma Globulin 1.1 g/dL (0.4-1.8); PROEL- TOTAL PROTEIN 6.8 g/dL (6.0-8.5); PROELU- Albumin, Urine 32.5 % (.); PROELU- Alpha-1-Globulin,Ur 9.2 % (.); PROELU- Alpha-2-Globulin,Ur 15.8 % (.); PROELU- Beta Globulin, Ur 28.1 % (.); PROELU- Gamma Globulin, Ur 14.4 % (.); Total Protein, Ur < 4.0 mg/dL (Not Estab.)
== END | disposition home or self-care (01) ==
LOC: MTLAB 16:27
PROVIDERS: PCP Family Medicine; Referring Provider Family Medicine; Visit Provider Family Medicine
DX: R77.1 Abnormality of globulin (principal); D75.839 Thrombocytosis, unspecified
CPT/HCPCS: 36415; 80053; 82232; 82784; 84165; 84166; 85025; 85652; 86140; 86334

== ENCOUNTER → 2023-06-26 | Outpatient (CLI) | payer OTHER, SELFPAY ==
--- NOTE | 2023-06-26 07:14 | BI_ITS ---
MAMMOGRAPHY - BILATERAL SCREENING REASON FOR EXAM: Female, 58 years old. Routine annual screening examination. PERTINENT HISTORY: Mother with breast cancer. TECHNIQUE: Digital bilateral breast ledy (3D mammographic acquisition) in the CC and MLO projections. 2-D mediolateral oblique (MLO) and craniocaudad (CC) views of both breasts were obtained. CAD: Full Field Digital Mammography with Computer Added Detection was performed. COMPARISON: Comparison is made with prior study June 12, 2022 and November 12, 2021. FINDINGS: Breast Composition: The breasts are heterogeneously dense, which may obscure small masses. There are no dominant masses or suspicious calcifications. No other significant abnormalities are identified. There has been no significant change since the prior study. BI/SCRN MAMM (CAD)W/LEDY BILAT IMPRESSION: Stable bilateral screening mammogram. Yearly follow-up mammogram recommended. (A) ASSESSMENT CATEGORY: BIRADS Category 1: Negative. A letter regarding these results will be sent to the patient by the facility within 30 days. Approximately 10% of breast cancers are not detected by mammography. A normal mammogram should not delay biopsy of a clinically suspicious abnormality. [id number] Electronically Signed: Joseluis Chandler MD at 8:34 EDT ,
== END | disposition home or self-care (01) ==
LOC: OPBI 07:12
PROVIDERS: PCP Family Medicine; Referring Provider Family Medicine; Visit Provider Family Medicine
DX: Z12.31 Encounter for screening mammogram for malignant neoplasm of breast (principal); Z80.3 Family history of malignant neoplasm of breast
CPT/HCPCS: 77063; 77067

== ENCOUNTER → 2023-09-21 | Outpatient (CLI) | payer OTHER, SELFPAY ==
[2023-09-21 07:45] LABS: Absolute Lymphocyte Count 1.55 X10^3/uL (0.83-4.51); Absolute Neutrophil Count 2.1 X10^3/uL (2.0-7.7); Basophil# 0.08 X10^3/uL; Eosinophil# 0.08 X10^3/uL; Hematocrit 41.4 % (37-47); Hemoglobin 13.7 g/dL (12.0-15.0); Lymphocyte # 1.55 X10^3/ul (0.83-4.51); Lymphocyte % 38.2 % (19-41); Mean Corp Hgb Conc 33.1 g/dL (32-36); Mean Corpuscular Hgb 29.8 pg (27.0-32.0); Mean Platelet Vol. 9.3 fl (6.2-12.0); Monocyte# 0.28 X10^3/uL; Monocyte% 6.9 % (0-10); NRBC Flagged by Analyzer 0 % (0-5); Neutrophil # 2.06 X10^3/uL (2.7-7.7); Neutrophil % 50.7 % (47-70); Platelet Count 387 K/mm3 (150-450); RBC Distribution Width CV 13.9 % (11.6-14.6); RBC Distribution Width SD 45.5 fl (35.1-43.9); White Blood Count 4.1 K/mm3 (4.4-11.0)
[2023-09-21 08:19] LABS: AST(SGOT) 16 U/L (15-37); Alanine Aminotransfer ALT/SGPT 29 U/L (13-56); Albumin, Serum 3.7 g/dL (3.2-5.0); Alkaline Phosphatase 72 U/L (45-117); Anion Gap 2 (5-15); BUN 16 mg/dL (7-18); BUN/Creat Ratio 19.6 RATIO (10-20); Calcium,Total 9.3 mg/dL (8.5-10.1); Chloride 109 mmol/L (98-107); Cholesterol 257 mg/dL (200); Creatinine, Serum 0.82 mg/dL (0.55-1.02); EST Glomerular Filtration Rate 76 mL/min (>60); Est Glom Filt Rate - Afr Amer 92 mL/min (>60); Globulin 3.7 g/dL (2.2-4.2); Glucose 88 mg/dL (74-106); High Density Lipoprotein 81 mg/dL; Potassium 4.2 mmol/L (3.5-5.1); Protein, Total 7.4 g/dL (6.4-8.2); Sodium Level 140 mmol/L (136-145); Triglycerides 66 mg/dL; Very Low Density Lipoprotein 13 mg/dL (5-40)
== END | disposition home or self-care (01) ==
PROVIDERS: PCP Family Medicine; Referring Provider Family Medicine; Visit Provider Family Medicine
DX: Z00.00 Encounter for general adult medical examination without abnormal findings (principal)
CPT/HCPCS: 36415; 80053; 80061; 85025

== ENCOUNTER → 2024-09-07 | Outpatient (CLI) | payer BC, SELFPAY ==
--- NOTE | 2024-09-07 07:10 | BI_ITS ---
EXAM: SCRN MAMM (CAD)W/LEDY BILAT DATE: 09/07/2024 CLINICAL HISTORY: F, Age 59 y/o , SCREENING TECHNIQUE: SCRN MAMM (CAD)W/LEDY BILAT COMPARISON: Prior exam(s) dated 06/26/2023, 06/12/2022, and 04/14/2021. FINDINGS: TISSUE DENSITY: There are scattered areas of fibroglandular density. Bilateral Breast Mammographic Findings: There are no suspicious masses, suspicious clustered microcalcifications, architectural distortion or secondary signs of malignancy identified in either breast. A benign-appearing macrocalcification is seen in the left breast. BI/SCRN MAMM (CAD)W/LEDY BILAT IMPRESSION: Benign screening mammogram. OVERALL FINAL ASSESSMENT BI-RADS 2: BENIGN RECOMMENDATION: Routine annual follow-up in 1 Year A letter with findings and recommendations will be mailed to the patient. Reading Location: [id number]
--- OUTSIDE RECORDS SUMMARY | 2024-09-07 07:12 | XMS RPT_ITS | CCD ---
Author Organization [facility] Care Team Providers Care Supervisor Dried Yeast Name Role Phone CesarAugie pinedo Primary Care Provider [phone] Rick Diaz Referring Unavailable Rick Diaz Attending Unavailable Rick Diaz Primary Care Unavailable Rick Diaz Primary Care Unavailable Briseyda Duval Referring Unavailable Briseyda Duval Attending Unavailable Problems Problem Classification Problem Date Documented Da te Episodic/Chronic Other gastrointestinal disorders (2 sources) Stool DNA-based colorectal cancer screening positive; Translations: [Other fecal abnormalities] 04-14-2019 Episodic Other screening for suspected conditions (not mental disorders or infectious disease) (1 source) Encounter for other screening for malignant neoplasm of breast; Translations: [Encounter for other screening for malignant neoplasm of breast] Onset: 09-03-2024 Episodic Results Test Name Value Interpretation Reference Range Facility CBC W/Diff, Automatedon 08-0 Absolute Lymph 1.55 X10 3/uL Normal 0.83-4.[address] [facility] Comment on above: Performed By: #### L 500.4050, L500.4100, L100.0100 #### [facility] [address] [place], [address] Absolute Neut 2.1 X10 3/uL Normal 2.0-7.[address] [facility] Comment on above: Performed By: #### L 500.4050, L500.4100, L100.0100 #### [facility] [address] [place], [address] Basophils/100 WBC (Bld) 2.0 % High 0-1 [facility] Comment on above: Performed By: #### L 500.4050, L500.4100, L100.0100 #### [facility] [address] [place], [address] Eosinophils/100 WBC (Bld) 2.0 % Normal 0-[address] [facility] Comment on above: Performed By: #### L 500.4050, L500.4100, L100.0100 #### [facility] [address] [place], [address] Erythrocyte distribution width (RBC) [Ratio] 13.9 % Normal 11.6-14.[address] [facility] Comment on above: Performed By: #### L 500.4050, L500.4100, L100.0100 #### [facility] [address] [place], [address] Hematocrit (Bld) [Volume fraction] 41.4 % Normal 37-[address] [facility] Comment on above: Performed By: #### L 500.4050, L500.4100, L100.0100 #### [facility] [address] [place], [address] Hemoglobin (Bld) [Mass/Vol] 13.7 g/dL Normal 12.0-15.[address] [facility] Comment on above: Performed By: #### L 500.4050, L500.4100, L100.0100 #### [facility] [address] [place], [address] IG% 0.200 Normal 0.0-0.[address] [facility] Comment on above: Result Comment: IG% - Immature Granulocytes (promyelocytes, myelocytes and metamyelocytes) > 1% indicates that a LEFT SHIFT is Present. Performed By: #### L 500.4050, L500.4100, L100.0100 #### [facility] [address] [place], [address] Lymphocytes/100 WBC (Bld) 38.2 % Normal 19-[address] [facility] Comment on above: Performed By: #### L 500.4050, L500.4100, L100.0100 #### [facility] [address] [place], [address] MCH (RBC) [Entitic mass] 29.8 pg Normal 27.0-32.[address] [facility] Comment on above: Performed By: #### L 500.4050, L500.4100, L100.0100 #### [facility] [address] [place], [address] MCHC (RBC) [Mass/Vol] 33.1 g/dL Normal 32-36 [facility] Comment on above: Performed By: #### L 500.4050, L500.4100, L100.0100 #### [facility] [address] [place], [address] MCV (RBC) [Entitic vol] 90.0 fL Normal 81-99 [facility] Comment on above: Performed By: #### L 500.4050, L500.4100, L100.0100 #### [facility] [address] [place], [address] Monocytes/100 WBC (Bld) 6.9 % Normal 0-10 [facility] Comment on above: Performed By: #### L 500.4050, L500.4100, L100.0100 #### [facility] [address] [place], [address] Neutrophils/100 WBC (Bld) 50.7 % Normal 47-[address] [facility] Comment on above: Performed By: #### L 500.4050, L500.4100, L100.0100 #### [facility] [address] [place], [address] Nucleated RBC (Bld) [#/Vol] 0 10*3/uL Normal 0-[address] [facility] Comment on above: Performed By: #### L 500.4050, L500.4100, L100.0100 #### [facility] [address] [place], [address] Platelet mean volume (Bld) [Entitic vol] 9.3 fL Normal 6.2-12.[address] [facility] Comment on above: Performed By: #### L 500.4050, L500.4100, L100.0100 #### [facility] [address] [place], [address] Platelets (Bld) [#/Vol] 387 10*3/uL Normal 150-[address] [facility] Comment on above: Performed By: #### L 500.4050, L500.4100, L100.0100 #### [facility] [address] [place], [address] RBC (Bld) [#/Vol] 4.60 10*6/uL Normal 4.2-5.4 [facility] Comment on above: Performed By: #### L 500.4050, L500.4100, L100.0100 #### [facility] [address] [place], [address] RDW SD 45.5 fl High 35.1-43.[address] [facility] Comment on above: Performed By: #### L 500.4050, L500.4100, L100.0100 #### [facility] [address] [place], [address] WBC (Bld) [#/Vol] 4.1 10*3/uL Low 4.4-11.0 [facility] Comment on above: Performed By: #### L 500.4050, L500.4100, L100.0100 #### [facility] [address] [place], [address] Comprehensive Metabolic Prof ilon 09-21-2023 Albumin [Mass/Vol] 3.7 g/dL Normal 3.2-5.0 [facility] Comment on above: Performed By: #### L 500.4050, L500.4100, L100.0100 #### [facility] [address] [place], [address] Albumin/Globulin [Mass ratio] 1.0 {ratio} Normal 0.9-2.[address] [facility] Comment on above: Performed By: #### L 500.4050, L500.4100, L100.0100 #### [facility] [address] [place], [address] ALK P 72 U/L Normal 45-[address] [facility] Comment on above: Performed By: #### L 500.4050, L500.4100, L100.0100 #### [facility] [address] [place], [address] ALT [Catalytic activity/Vol] 29 U/L Normal 13-[address] [facility] Comment on above: Performed By: #### L 500.4050, L500.4100, L100.0100 #### [facility] [address] [place], [address] AST [Catalytic activity/Vol] 16 U/L Normal 15-[address] [facility] Comment on above: Performed By: #### L 500.4050, L500.4100, L100.0100 #### [facility] [address] [place], [address] Bilirubin [Mass/Vol] 0.60 mg/dL Normal 0.20-1.00 [facility] Comment on above: Result Comment: For patients on eltrombopag therapy, use of Dimension [place] TBIL is not recommended. Performed By: #### L 500.4050, L500.4100, L100.0100 #### [facility] [address] [place], [address] BUN/CRE 19.6 RATIO Normal 10-[address] [facility] Comment on above: Performed By: #### L 500.4050, L500.4100, L100.0100 #### [facility] [address] [place], [address] CA,Total 9.3 mg/dL Normal 8.5-10.[address] [facility] Comment on above: Performed By: #### L 500.4050, L500.4100, L100.0100 #### [facility] [address] [place], [address] Chloride [Moles/Vol] 109 mmol/L High 98-107 [facility] Comment on above: Performed By: #### L 500.4050, L500.4100, L100.0100 #### [facility] [address] [place], [address] CO2 [Moles/Vol] 29.0 mmol/L Normal 21.0-32.[address] [facility] Comment on above: Performed By: #### L 500.4050, L500.4100, L100.0100 #### [facility] [address] [place], [address] Creatinine [Mass/Vol] 0.82 mg/dL Normal 0.55-1.02 [facility] Comment on above: Result Comment: The validity of the calculated GFR GFRAA in patients over 70 years has not been determined. Clinical correlation is essential. Performed By: #### L 500.4050, L500.4100, L100.0100 #### [facility] [address] [place], [address] EST GFR - AA 92 mL/min Normal >[address] [facility] Comment on above: Result Comment: Afri can Colombian GFR Calc Performed By: #### L 500.4050, L500.4100, L100.0100 #### [facility] [address] [place], [address] GAP 2 Low 5-[address] [facility] Comment on above: Performed By: #### L 500.4050, L500.4100, L100.0100 #### [facility] [address] [place], [address] GFR/1.73 sq M.predicted among non-blacks MDRD (S/P/Bld) [Vol rate/Area] 76 mL/min/{1.73_m2} Normal >[address] [facility] Comment on above: Result Comment: Non- GFR Calc Performed By: #### L 500.4050, L500.4100, L100.0100 #### [facility] [address] [place], [address] Globulin (S) [Mass/Vol] 3.7 g/dL Normal 2.2-4.2 [facility] Comment on above: Performed By: #### L 500.4050, L500.4100, L100.0100 #### [facility] [address] [place], [address] Glucose [Mass/Vol] 88 mg/dL Normal 74-106 [facility] Comment on above: Performed By: #### L 500.4050, L500.4100, L100.0100 #### [facility] [address] [place], [address] Potassium [Moles/Vol] 4.2 mmol/L Normal 3.5-5.1 [facility] Comment on above: Performed By: #### L 500.4050, L500.4100, L100.0100 #### [facility] [address] [place], [address] Sodium [Moles/Vol] 140 mmol/L Normal 136-145 [facility] Comment on above: Performed By: #### L 500.4050, L500.4100, L100.0100 #### [facility] [address] [place], [address] T PROT 7.4 g/dL Normal 6.4-8.[address] [facility] Comment on above: Performed By: #### L 500.4050, L500.4100, L100.0100 #### [facility] [address] [place], [address] Urea nitrogen [Mass/Vol] 16 mg/dL Normal 7-[address] [facility] Comment on above: Performed By: #### L 500.4050, L500.4100, L100.0100 #### [facility] [address] [place], [address] Lipid Profileon 09-21-2023 Cholesterol [Mass/Vol] 257 mg/dL High 200 [facility] Comment on above: Result Comment: <200 mg/dL Desirable 200-240 mg/dL Borderline >240 mg/dL High Risk Performed By: #### L 500.4050, L500.4100, L100.0100 #### [facility] [address] [place], [address] Cholesterol in HDL [Mass/Vol] 81 mg/dL Normal [facility] Comment on above: Result Comment: The drugs N-Acetylcysteine and Metamizole may falsely depress this assay. Reference Range HDL <40 mg/dL Low HDL Cholesterol HDL >or= 60 mg/dL High HDL Cholesterol Performed By: #### L 500.4050, L500.4100, L100.0100 #### [facility] [address] [place], [address] Cholesterol in LDL [Mass/Vol] 163 mg/dL High 0-[address] [facility] Comment on above: Performed By: #### L 500.4050, L500.4100, L100.0100 #### [facility] [address] [place], [address] Cholesterol in VLDL [Mass/Vol] 13 mg/dL Normal 5-[address] [facility] Comment on above: Performed By: #### L 500.4050, L500.4100, L100.0100 #### [facility] [address] [place], [address] Triglyceride [Mass/Vol] 66 mg/dL Normal [facility] Comment on above: Result Comment: The drugs N-Acetylcysteine and Metamizole may falsely depress this assay. Serum Triglycerides Reference Interval Normal <150 mg/dL Borderline high 150 - 199 mg/dL High 200 - 499 mg/dL Very High > or = 500 mg/dL Performed By: #### L 500.4050, L500.4100, L100.0100 #### [facility] [address] [place], [place], [id number] Absolute lymphocyte countOrd ered By: Dr. Diaz on 06-28-2022 Lymphocytes Auto (Unsp spec) [#/Vol] 2.02 10*3/uL 0.83-4.[address] [facility] Basophil percentageOrdered B y: Dr. Diaz on 06-28-2022 Basophils/100 WBC (Bld) 1.3 % 0-1 [facility] Bilirubin [Mass/Vol] 0.20 mg/dL 0.20-1.00 [facility] Comment on above: For patients on eltr ombopag therapy, use of Dimension [place] TBIL is not recommended. Chloride [Moles/Vol] 104 mmol/L 98-107 [facility] Eosinophils/100 WBC (Bld) 1.4 % 0-[address] [facility] Glucose [Mass/Vol] 102 mg/dL 74-106 [facility] Comment on above: Fasting Glucose resu lt from 100 to 125 mg/dL suggests IMPAIRED HOMEOSTASIS per A.D.A. criteria. Neutrophils (Bld) [#/Vol] 5.7 10*3/uL 2.0-7.[address] [facility] Neutrophils/100 WBC (Bld) 67.6 % 47-[address] [facility] Potassium [Moles/Vol] 4.0 mmol/L 3.5-5.1 [facility] Protein [Mass/Vol] 8.3 g/dL 6.4-8.2 [facility] Sodium [Moles/Vol] 138 mmol/L 136-145 [facility] WBC (Bld) [#/Vol] 8.4 10*3/uL 4.4-11.0 [facility] Blood erythrocytes count (nu mber/volume)Ordered By: Dr. Diaz on 06-28-2022 RBC (Bld) [#/Vol] 4.62 10*6/uL 4.2-5.4 [facility] Blood hemoglobin measurement (mass/volume)Ordered By: Dr. Diaz on 06-28-2022 Hemoglobin (Bld) [Mass/Vol] 13.5 g/dL 12.0-15.[address] [facility] Blood lymphocytes/100 leukoc ytesOrdered By: Dr. Diaz on 06-28-2022 Lymphocytes/100 WBC (Bld) 24.1 % 19-[address] [facility] Blood monocytes/100 leukocyt esOrdered By: Dr. Diaz on 06-28-2022 Monocytes/100 WBC (Bld) 5.4 % 0-10 [facility] Blood platelet mean volumeOr dered By: Dr. Diaz on 06-28-2022 Platelet mean volume (Bld) [Entitic vol] 9.2 fL 6.2-12.[address] [facility] Determination of erythrocyte mean corpuscular volume (MCV)Ordered By: Dr. Diaz on 06-28-2022 MCV (RBC) [Entitic vol] 89.4 fL 81-99 [facility] Hematocrit Auto (Bld) [Volum e fraction]Ordered By: Dr. Diaz on 06-28-2022 Hematocrit (Bld) [Volume fraction] 41.3 % 37-[address] [facility] - Chemistry and C hemistry - challengeOrdered By: Dr. Diaz on 06-28-2022 ALP [Catalytic activity/Vol] 92 U/L 45-[address] [facility] ALT [Catalytic activity/Vol] 34 U/L 13-[address] [facility] CO2 [Moles/Vol] 27.0 mmol/L 21.0-32.[address] [facility] Free T4 [Mass/Vol] 0.98 ng/dL 0.76-1.46 [facility] Globulin (S) [Mass/Vol] 4.5 g/dL 2.2-4.2 [facility] Urea nitrogen/Creatinine [Mass ratio] 19.4 mg/mg 10-[address] [facility] - Hematology and Cell countsOrdered By: Dr. Diaz on 06-28-2022 Erythrocyte distribution width (RBC) [Entitic vol] 44.2 fL 35.1-43.[address] [facility] Erythrocyte distribution width (RBC) [Ratio] 13.6 % 11.6-14.[address] [facility] Immature granulocytes/100 WBC (Bld) 0.200 % 0.0-0.[address] [facility] Comment on above: IG% - Immature Granu locytes (promyelocytes, myelocytes and metamyelocytes) > 1% indicates that a LEFT SHIFT is Present. MCH (RBC) [Entitic mass] 29.2 pg 27.0-32.[address] [facility] Nucleated RBC/100 WBC (Bld) [Ratio] 0 % 0-[address] [facility] MCHC Auto (RBC) [Mass/Vol]Or dered By: Dr. Diaz on 06-28-2022 MCHC (RBC) [Mass/Vol] 32.7 g/dL 32-36 [facility] No Panel InformationOrdered By: Dr. Diaz on 06-28-2022 Estimated GFR (MDRD) Amer 85 mL/min >[address] [facility] Comment on above: GFR Calc Estimated GFR (MDRD) Non-Af Amer 70 mL/min >[address] [facility] Comment on above: Non- GFR Calc Thyroid Stimulating Hormone (TSH) 1.33 uIU/mL 0.358-3.[address] [facility] Platelets bldOrdered By: Dr. Diaz on 06-28-2022 Platelets (Bld) [#/Vol] 621 10*3/uL 150-[address] [facility] Serum or plasma albumin yehuda urement (mass/volume)Ordered By: Dr. Diaz on 06-28-2022 Albumin [Mass/Vol] 3.8 g/dL 3.2-5.0 [facility] Serum or plasma albumin/glob ulin mass ratioOrdered By: Dr. Diaz on 06-28-2022 Albumin/Globulin [Mass ratio] 0.8 {ratio} 0.9-2.[address] [facility] Serum or plasma calcium yehuda urement (mass/volume)Ordered By: Dr. Diaz on 06-28-2022 Calcium [Mass/Vol] 9.8 mg/dL 8.5-10.1 [facility] Serum or plasma creatinine m easurement (mass/volume)Ordered By: Dr. Diaz on 06-28-2022 Creatinine [Mass/Vol] 0.88 mg/dL 0.55-1.02 [facility] Comment on above: The validity of the calculated GFR & GFRAA in patients over 70 years has not been determined. Clinical correlation is essential. Serum or plasma urea nitroge n measurement (mass/volume)Ordered By: Dr. Diaz on 06-28-2022 Urea nitrogen [Mass/Vol] 17 mg/dL 7-[address] [facility] Thin prep Papanicolaou smear with manual screeningOrdered By: Dr. Diaz on 06-28-2022 Thin prep Papanicolaou smear with manual screening 21 U/L 15-[address] [facility] Thin prep Papanicolaou smear with manual screening 7 5-[address] [facility] Otheron 04-24-2007 CONVERTED ELECTRONIC SIGNATURE [employer], SUPERVISORY SUPERINTENDENT SALES (Electronic signature on file) Final Signed Out: 04/24/2007 12:45 [facility] CONVERTED FINAL DIAGNOSIS SPECIMEN ADEQUACY SATISFACTORY FOR EVALUATION. GENERAL CATEGORIZATION NEGATIVE FOR INTRAEPITHELIAL LESION OR MALIGNANCY. INTERPRETATION/RESULT FUNGAL ORGANISMS MORPHOLOGICALLY CONSISTENT WITH LOPEZ SPECIES. [facility] CONVERTED ORDERING PROVIDER Ordering Provider: [facility] CONVERTED PAP DISCLAIMER The Pap test serves as a screening tool for early detection of cervical cancer. The Pap test does not represent a final diagnostic test for cervical cancer. Furthermore, the Pap test was not designed to screen for other malignancies (endometrial, ovarian cancer, etc....). False negatives and false positives have occurred. If clinically indicated, further patient evaluation is recommended. [facility] Otheron 10-07-2006 CONVERTED ELECTRONIC SIGNATURE SUMMER URIBE M.D. (Electronic signature on file) Final Signed Out: 10/07/2006 16:00 [facility] CONVERTED FINAL DIAGNOSIS DIAGNOSIS ASCITIC FLUID - NO MALIGNANT CELLS IDENTIFIED. NARRATIVE FEW LYMPHOCYTES, HISTIOCYTES, MESOTHELIAL CELLS. [facility] CONVERTED ORDERING PROVIDER Ordering Provider: [facility] CONVERTED FINAL DIAGNOSIS UTERUS, RESECTION - FOCAL MILD CERVICAL DYSPLASIA. MILD ACTIVE CERVICITIS. SECRETORY PHASE ENDOMETRIUM. MULTIPLE LEIOMYOMAS. COMMENT: Histologic sections demonstrate minimal focal cervical dysplasia. There is no evidence of hyperplasia or malignancy. [facility] ORDERING PROVIDER Ordering Provider: [facility] Thyroidon 10-07-2006 TSH Luz Maria RODRIGUEZ M.D., PATHOLOGIST (Electronic signature on file) Final Signed Out: 10/07/2006 14:22 [facility] 05-29-2006 CONVERTED ELECTRONIC SIGNATURE LEEROY BRASWELL M.D., PATHOLOGIST (Electronic signature on file) Final Signed Out: 05/29/2006 14:45 [facility] CONVERTED FINAL DIAGNOSIS SPECIMEN ADEQUACY SATISFACTORY FOR EVALUATION. ENDOCERVICAL/TRANSFOR MATION ZONE COMPONENTS PRESENT. GENERAL CATEGORIZATION NEGATIVE FOR INTRAEPITHELIAL LESION OR MALIGNANCY. INTERPRETATION/RESULT HYPERKERATOSIS. FUNGAL ORGANISMS MORPHOLOGICALLY CONSISTENT WITH LOPEZ SPECIES. [facility] ORDERING PROVIDER Ordering Provider: [facility] CONVERTED PAP DISCLAIMER The Pap test serves as a screening tool for early detection of cervical cancer. The Pap test does not represent a final diagnostic test for cervical cancer. Furthermore, the Pap test was not designed to screen for other malignancies (endometrial, ovarian cancer, etc....). False negatives and false positives have occurred. If clinically indicated, further patient evaluation is recommended. [facility] 05-09-2005 CONVERTED ELECTRONIC SIGNATURE SUMMER URIBE M.D. (Electronic signature on file) Final Signed Out: 05/09/2005 14:42 [facility] CONVERTED FINAL DIAGNOSIS SPECIMEN ADEQUACY SATISFACTORY FOR EVALUATION. ENDOCERVICAL/TRANSFOR MATION ZONE COMPONENTS ABSENT. GENERAL CATEGORIZATION NEGATIVE FOR INTRAEPITHELIAL LESION OR MALIGNANCY. INTERPRETATION/RESULT REACTIVE CELLULAR CHANGES ASSOCIATED WITH INFLAMMATION OR REPAIR. FUNGAL ORGANISMS MORPHOLOGICALLY CONSISTENT WITH LOPEZ SPECIES. [facility] ORDERING PROVIDER Ordering Provider: [facility] CONVERTED PAP DISCLAIMER The Pap test serves as a screening tool for early detection of cervical cancer. The Pap test does not represent a final diagnostic test for cervical cancer. Furthermore, the Pap test was not designed to screen for other malignancies (endometrial, ovarian cancer, etc....). False negatives and false positives have occurred. If clinically indicated, further patient evaluation is recommended. [facility] 05-25-2004 CONVERTED ELECTRONIC SIGNATURE PONCHO BROWN SUPERINTENDENT SALES (Electronic signature on file) Final Signed Out: 05/25/2004 14:50 [facility] CONVERTED FINAL DIAGNOSIS SPECIMEN ADEQUACY SATISFACTORY FOR EVALUATION. ENDOCERVICAL/TRANSFOR MATION ZONE COMPONENTS ABSENT. GENERAL CATEGORIZATION NEGATIVE FOR INTRAEPITHELIAL LESION OR MALIGNANCY. INTERPRETATION/RESULT FUNGAL ORGANISMS MORPHOLOGICALLY CONSISTENT WITH LOPEZ SPECIES. [facility] ORDERING PROVIDER Ordering Provider: [facility] CONVERTED PAP DISCLAIMER The Pap test serves as a screening tool for early detection of cervical cancer. The Pap test does not represent a final diagnostic test for cervical cancer. Furthermore, the Pap test was not designed to screen for other malignancies (endometrial, ovarian cancer, etc....). False negatives and false positives have occurred. If clinically indicated, further patient evaluation is recommended. [facility] 08-26-2001 CONVERTED FINAL DIAGNOSIS A) ENDOCERVIX, CURETTAGE - BENIGN ENDOCERVICAL MUCOSA. B) UTERUS, CURETTAGE - PROLIFERATIVE PHASE ENDOMETRIUM. BENIGN ENDOCERVICAL MUCOSA. COMMENT: There is no evidence of dysplasia, hyperplasia, or malignancy. [facility] ORDERING PROVIDER Ordering Provider: [facility] Thyroidon 08-26-2001 TSH Luz Maria RODRIGUEZ M.D., PATHOLOGIST (Electronic signature on file) Final Signed Out: 08/26/2001 14:44 [facility] 12-31-2000 CONVERTED ELECTRONIC SIGNATURE [employer], SUPERVISORY SUPERINTENDENT SALES (Electronic signature on file) Final Signed Out: 12/31/2000 10:02 [facility] FINAL DIAGNOSIS SPECIMEN ADEQUACY SATISFACTORY FOR CYTOLOGIC EVALUATION BUT LIMITED BY: NO ENDOCERVICAL COMPONENTS. GENERAL CATEGORIZATION WITHIN NORMAL LIMITS HORMONAL EVALUATION HORMONAL PATTERN COMPATIBLE WITH AGE AND HISTORY [facility] ORDERING PROVIDER Ordering Provider: [facility] CONVERTED PAP DISCLAIMER The Pap test serves as a screening tool for early detection of cervical cancer. The Pap test does not represent a final diagnostic test for cervical cancer. Furthermore, the Pap test was not designed to screen for other malignancies (endometrial, ovarian cancer, etc....). False negatives and false positives have occurred. If clinically indicated, further patient evaluation is recommended. [facility] 06-13-2000 CONVERTED ELECTRONIC SIGNATURE [employer], SUPERVISORY SUPERINTENDENT SALES (Electronic signature on file) Final Signed Out: 06/13/2000 08:35 [facility] FINAL DIAGNOSIS SPECIMEN ADEQUACY SATISFACTORY FOR EVALUATION GENERAL CATEGORIZATION WITHIN NORMAL LIMITS HORMONAL EVALUATION HORMONAL PATTERN COMPATIBLE WITH AGE AND HISTORY [facility] CONVERTED ORDERING PROVIDER Ordering Provider: [facility] CONVERTED PAP DISCLAIMER The Pap test serves as a screening tool for early detection of cervical cancer. The Pap test does not represent a final diagnostic test for cervical cancer. Furthermore, the Pap test was not designed to screen for other malignancies (endometrial, ovarian cancer, etc....). False negatives and false positives have occurred. If clinically indicated, further patient evaluation is recommended. [facility] Otheron 12-27-1999 CONVERTED ELECTRONIC SIGNATURE LEEROY BRASWELL M.D., PATHOLOGIST (Electronic signature on file) Final Signed Out: 12/27/1999 16:32 [facility] CONVERTED FINAL DIAGNOSIS SPECIMEN ADEQUACY SATISFACTORY FOR EVALUATION GENERAL CATEGORIZATION EPITHELIAL CELL ABNORMALITY DESCRIPTIVE DIAGNOSIS ATYPICAL SQUAMOUS CELLS OF UNDETERMINED SIGNIFICANCE, FAVOR HPV CYTOPATHIC EFFECT. RARE ATYPICAL ENDOCERVICAL CELLS. HORMONAL EVALUATION HORMONAL PATTERN COMPATIBLE WITH AGE AND HISTORY [facility] CONVERTED ORDERING PROVIDER Ordering Provider: [facility] CONVERTED PAP DISCLAIMER The Pap test serves as a screening tool for early detection of cervical cancer. The Pap test does not represent a final diagnostic test for cervical cancer. Furthermore, the Pap test was not designed to screen for other malignancies (endometrial, ovarian cancer, etc....). False negatives and false positives have occurred. If clinically indicated, further patient evaluation is recommended. [facility] Encounters Encounter Date Encounter Type Care Provider Facility Start: 09-07-2024 ambulatory [facility] Facility: [facility] Start: 10-28-2023 Encounter for genera l adult medical examination without abnormal findings [facility] Start: 09-21-2023 End: 09-21-2023 ambulatory [facility] Facility:[facility] Start: 06-28-2022 End: 06-28-[address] [facility] Work Phone: Start: 06-28-2022 End: 06-28-20[address] [facility]Marisa Landa [facility] Start: 2022 End: [address] [facility] Work Phone: Start: 2022 End: 20[address] [facility] Start: 04-17-2007 End: 04-17-2007 Patient encounter procedure Wendy Mcarthur Work Phone: [facility] Start: 04-17-2007 Results Only Wendy Casperdelisa jesus Mcarthur Work Phone: [facility] Start: 10-04-2006 End: 10-04-2006 Patient encounter procedure Wendy Mcarthur Work Phone: [facility] Start: 10-04-2006 Results Only Wendy Jimenez ann marie Lyubov Work Phone: [facility] Start: 05-23-2006 End: 05-23-2006 Patient encounter procedure Wendy Mcarthur Work Phone: [facility] Start: 05-23-2006 Results Only Wendy Mcarthur Work Phone: [facility] Start: 05-03-2005 End: 05-03-2005 Patient encounter procedure Wendy Casperrick Mcarthur Work Phone: [facility] Start: 05-03-2005 Results Only Wendy Mcarthur Work Phone: [facility] Start: 05-03-2004 End: 05-03-2004 Patient encounter procedure Wendy Curtis Mcarthur Work Phone: [facility] Start: 05-03-2004 Results Only Wendy Mcarthur Work Phone: [facility] Start: 08-25-2001 End: 08-25-2001 Patient encounter procedure Wendy Ever Mcarthur Work Phone: [facility] Start: 08-25-2001 Results Only Wendy Mcarthur Work Phone: [facility] Start: 12-26-2000 End: 12-26-2000 Patient encounter procedure Wendy Mcarthur Work Phone: [facility] Start: 12-26-2000 Results Only Wendy Mcarthur Work Phone: [facility] Start: 06-10-2000 End: 06-10-2000 Patient encounter procedure Wendy Mcarthur Work Phone: [facility] Start: 06-10-2000 Results Only Wendy Mcarthur Work Phone: [facility] Start: 12-21-1999 End: 12-21-1999 Patient encounter procedure Wendy Mcarthur Work Phone: [facility] Start: 12-21-1999 Results Only Wendy Mcarthur Work Phone: [facility] Procedures Date Procedure Procedure Detail Performing Clinician Start: 2022 Screening mammography Start: 04-17-2014 Mammography Wendy pereira Start: 04-17-2007 CONVERTED CYTOLOGY RESERVE OFFICER Wendy Mcarthur Work Phone: Start: 10-04-2006 CONVERTED CYTOLOGY NON-RESERVE OFFICER Wendy Mcarthur Work Phone: Start: 10-04-2006 CONVERTED SURGICAL PATHOLOGY Wendy Mcarthur Work Phone: Start: 05-23-2006 CONVERTED CYTOLOGY RESERVE OFFICER Wendy Mcarthur Work Phone: Start: 05-03-2005 CONVERTED CYTOLOGY RESERVE OFFICER Wendy Mcarthur Work Phone: Start: 05-03-2004 CONVERTED CYTOLOGY RESERVE OFFICER Wendy Mcarthur Work Phone: Start: 08-25-2001 CONVERTED SURGICAL PATHOLOGY Wendy Mcarthur Work Phone: Start: 12-26-2000 CONVERTED CYTOLOGY RESERVE OFFICER Wendy Mcarthur Work Phone: Start: 06-10-2000 CONVERTED CYTOLOGY RESERVE OFFICER Wendy Mcarthur Work Phone: Start: 12-21-1999 CONVERTED CYTOLOGY RESERVE OFFICER Wendy Mcarthur Work Phone: Plan of Treatment Date Care Activity Detail Author Start: 10-20-2019 Influenza vaccination INFLUENZA (#1) [facility] Start: 04-17-2015 Mammography MAMMOGRAM [facility] Start: 06-11-2013 SHINGRIX VACCINE (1 of 2) HENRY GRIX VACCINE (1 of 2) [facility] Start: 06-11-2013 Tuberculosis screening COLOREC DOC CANCER SCREENING,SEE MODIFIER [facility] Start: 06-11-2008 DIABETES SCREEN DIABETES SCREEN [facility] Start: 06-11-2008 LIPID SCREEN LIPID SCREEN [facility] Start: 06-11-1993 HPV TESTING HPV TESTING [facility] Start: 06-11-1984 PAP TESTING PAP TESTING [facility] Start: 06-11-1982 Urine microalbumin profile DTAP,TDAP ,TD (1 - Tdap) [facility] Start: 06-11-1981 HEPATITIS C SCREENING HEPATITIS C SC SOHA [facility] Start: 06-11-1981 HIV SCREENING HIV SCREENING Arun lucero [facility] Payers Date Payer Category Payer Unknown [id number] 2023 Self-pay [id number] 2023 Unknown [id number] 2001 Self-pay SELF PAY HSP/MED ICAL SELF PAY [id number] 2001-2015 SELF PAY Indemnity [id number] Unknown ANTHEM [id number] Unknown [facility] [id number] Unknown [id number] Unknown [id number] Social History Date Type Detail Facility [facility] Sex Assigned At Not on file [facility] Start: 04-17-2019 [facility] if ever smoked [facility] Start: 04-17-2019 Non-smoker [facility] Start: 1965 Sex Assigned At Female [facility] Evaluation note Note Date & Type Note Facility Evaluation note No assessment information availa ble [facility] Work Phone: Chief Complaint and Reason for Visit Chief Complaint SCREENING Family History No Family History Records Found Relationship Condition Age at Onset Recorded Date/T amrik father Malignant neoplasm Unknown grandmother Cardiac disease Unknown grandfather Cardiac disease Unknown Advance Directives No Advanced Directives Records Found Advance Directive Response Recorded Date/ Time Living Will Yes April 17 10:48am Power of Child Watch Attendant Yes April 17, 2019 10:48am Summary Purpose Additional Source Comments Source Comments (unrecognize d section and content) In the event this informatio n is protected by the Federal Confidentiality of Alcohol and Drug Abuse Patient Records regulations: The Federal rules restrict any use of the information to criminally investigate or prosecute any alcohol or drug abuse patient.[facility] the event this information is protected by the Federal Confidentiality of Alcohol and Drug Abuse Patient Records regulations: The Federal rules restrict any use of the information to criminally investigate or prosecute any alcohol or drug abuse patient.[facility] the event this information is protected by the Federal Confidentiality of Alcohol and Drug Abuse Patient Records regulations: The Federal rules restrict any use of the information to criminally investigate or prosecute any alcohol or drug abuse patient.[facility] Care Teams (unrecognized sec tion and content) Team Status: Active Member Role Status Dates Dr. Briseyda Duval , DO Family Provider Active Dr. Rick Diaz , DO Primary Care Provider Active Team Status: Inactive Member Role Status Dates Dr. Rick Diaz , DO Primary Care Prov ider, Attending Provider, Referring Provider Active Goals (unrecognized section and content) Goals may be documented in a n alternate sectionGoals may be documented in an alternate section INFORMATION SOURCE (unrecogn ized section and content) DATE CREATED AUTHOR 09/05/2024 [facility] FOR RECORDS PERTAINING TO PATIENTS WHO ARE OR HAVE BEEN ENROLLED IN A CHEMICAL DEPENDENCY/SUBSTANCEABUSE PROGRAM, SOME INFORMATION MAY BE OMITTED. This clinical summary was aggregated from multiple sources. Caution should be exercised in using it in the provision of clinical care. This summary normalizes information from multiple sources, and as a consequence, information in this document may materially change the coding, format and clinical context of patient data. In addition, data may be omitted in some cases. CLINICAL DECISIONS SHOULD BE BASED ON THE PRIMARY CLINICAL RECORDS. [employer] provides no warranty or guarantee of the accuracy or completeness of information in this document.
== END | disposition home or self-care (01) ==
PROVIDERS: PCP Family Medicine; Referring Provider Family Medicine; Visit Provider Family Medicine
DX: Z12.31 Encounter for screening mammogram for malignant neoplasm of breast (principal)
CPT/HCPCS: 77063; 77067